=== PATIENT | male | born 1965 ===

== ENCOUNTER 2018-07-16 12:07 | Day surgery (SDC) | payer BC, OTHER ==
[~2018-07-16] VITALS: Ht 177.8 cm; Wt 94.2 kg
[2018-07-16] MEDS ORDERED: AMLODIPINE-VAL1 EACH PO (13:06)
[2018-07-16] MEDS ORDERED: Nortriptyline H10 MG PO (13:06)
[2018-07-16] MEDS ORDERED: VITAMIN D31000 UNIT PO (13:07)
[2018-07-16] MEDS ORDERED: Hair, Skin & N1 EACH PO (13:07)
== END 2018-07-16 15:30 | disposition home or self-care (01) ==
LOC: ORSCSDS 12:07
PROVIDERS: Internal Medicine Gastroenterology
PROC: 0DB68ZX Excision of Stomach, Via Natural or Artificial Opening Endoscopic, Diagnostic (ICD-10-PCS; principal; 2018-07-16 13:45)
PROC: 0DB58ZX Excision of Esophagus, Via Natural or Artificial Opening Endoscopic, Diagnostic (ICD-10-PCS; principal; 2018-07-16 13:45)
PROC: 0DB98ZX Excision of Duodenum, Via Natural or Artificial Opening Endoscopic, Diagnostic (ICD-10-PCS; principal; 2018-07-16 13:45)
PROC: 0DBE8ZX Excision of Large Intestine, Via Natural or Artificial Opening Endoscopic, Diagnostic (ICD-10-PCS; principal; 2018-07-16 13:45)
DX: K92.1 Melena (principal); K29.00 Acute gastritis without bleeding; K20.9 Esophagitis, unspecified; K29.80 Duodenitis without bleeding; R19.7 Diarrhea, unspecified; Z86.010 Personal history of colon polyps; I10 Essential (primary) hypertension; E78.5 Hyperlipidemia, unspecified; Z79.899 Other long term (current) drug therapy
CPT/HCPCS: 88305; 88342; J7120

== ENCOUNTER 2018-10-29 13:38 | Day surgery (SDC) | payer BC, OTHER ==
[~2018-10-29] VITALS: Ht 180.3 cm; Wt 99.1 kg
[~2018-10-29 13:38] MED LIST: AMLODIPINE-VAL1 EACH PO; Hair, Skin & N1 EACH PO; Nortriptyline H10 MG PO; Omeprazole20 M1; Omeprazole20 M1 PO; VITAMIN D31000 UNIT PO; [UNRECOGNIZED DRUG - OTHER] PO
== END 2018-10-29 15:41 | disposition home or self-care (01) ==
LOC: ORSCSDS 13:38
PROVIDERS: Internal Medicine Gastroenterology
PROC: 0DB58ZX Excision of Esophagus, Via Natural or Artificial Opening Endoscopic, Diagnostic (ICD-10-PCS; principal; 2018-10-29 15:00)
DX: K20.9 Esophagitis, unspecified (principal); K31.7 Polyp of stomach and duodenum; K92.1 Melena; K29.60 Other gastritis without bleeding; K29.70 Gastritis, unspecified, without bleeding; I10 Essential (primary) hypertension; E78.5 Hyperlipidemia, unspecified
CPT/HCPCS: 88305; J7120